=== PATIENT | male | born 1985 | race African-American/Black ===

== ENCOUNTER 2025-04-03 23:56 | Emergency (ER) | payer BC, SELFPAY ==
[2025-04-04] MEDS ORDERED: Boostrix 0.5 ML (Tdap) VIAL (>/=7 yrs of age) ONE (02:36)
== END 2025-04-04 02:42 | disposition home or self-care (01) ==
LOC: ERS 23:56
DX: S01.411A Laceration without foreign body of right cheek and temporomandibular area, initial encounter (principal); W22.8XXA Striking against or struck by other objects, initial encounter
CPT/HCPCS: 12011; 90471; 90715